=== PATIENT | male | born 1975 | race African-American/Black ===

== ENCOUNTER 2019-07-23 11:29 | Emergency (ER) | payer MEDICAID ==
[~2019-07-23] VITALS: Ht 172.7 cm; Wt 73.0 kg
[2019-07-23] MEDS ORDERED: MORPHINE SULFATE 2 MG/ML CPJ (NOT FOR IM USE) IV ONE ×2 (12:00→14:15)
[2019-07-23 12:29] LABS: BASOPHILS % 0.9 % (0.0-2.0); EOSINOPHILS % 0.2 % (0.0-5.0); HEMATOCRIT. 41.5 % (42.0-52.0); HEMOGLOBIN. 13.5 g/dL (14.0-18.0); LYMPHOCYTES % 28.1 % (20.0-50.0); MEAN CORPUSCULAR HEMOGLOBIN 28.9 pg (28.0-32.0); MEAN CORPUSCULAR VOLUME 88.6 fL (80.0-94.0); MONOCYTES % 7.4 % (2.0-8.0); NEUTROPHILS % 63.4 % (40.0-76.0); PLATELET 300 x1000/uL (130-400); RED BLOOD CELL COUNT 4.68 mill/uL (4.7-6.1)
[2019-07-23 12:33] LABS: CHLORIDE 107 mEq/L (98-107)
[2019-07-23 12:36] LABS: PARTIAL THROMBOPLASTIN TIME 28.5 sec (23.4-31.0); PROTHROMBIN TIME 10.7 sec (9.6-11.0)
[2019-07-23 14:59] LABS: CHLORIDE 108 mEq/L (98-107)
[2019-07-23] MEDS ORDERED: MORPHINE SULFATE 4 MG/ML CPJ (NOT FOR IM USE) IV STA (20:40)
[2019-07-23] MEDS ORDERED: ONDANSETRON HCL 4MG/2ML INJ IV STA (20:40)
[2019-07-24] MEDS ORDERED: ONDANSETRON HCL 4MG/2ML INJ IV ONE (04:15)
[2019-07-24] MEDS ORDERED: MORPHINE SULFATE 4 MG/ML CPJ (NOT FOR IM USE) IV ONE ×2 (04:15→07:15)
[2019-07-24 12:52] VITALS: BP 129/67
== END 2019-07-24 12:53 | disposition short-term general hospital (02) ==
LOC: ER 11:29
DX: S72.91XA Unspecified fracture of right femur, initial encounter for closed fracture (principal); M97.11XA Periprosthetic fracture around internal prosthetic right knee joint, initial encounter; R00.1 Bradycardia, unspecified; Z98.890 Other specified postprocedural states; W05.0XXA Fall from non-moving wheelchair, initial encounter; Y93.89 Activity, other specified; Y92.89 Other specified places as the place of occurrence of the external cause; Y99.8 Other external cause status
CPT/HCPCS: 36415; 72170; 73552; 73560; 80048; 80053; 82962; 85025; 85610; 85730; 93005; 96374; 96375; 96376; 99285; J2270; J2405; 73502; U0003-CS

== ENCOUNTER 2024-02-05 00:39 | Inpatient (IN) | payer MEDICAID ==
[~2024-02-05] VITALS: Ht 149.9 cm; Wt 45.0 kg
[2024-02-05 01:38] LABS: BASOPHILS % 1.2 % (0.0-2.0); HEMATOCRIT. 39.9 % (42.0-52.0); LYMPHOCYTES % 21.2 % (20.0-50.0); MEAN CORPUSCULAR HEMOGLOBIN 28.3 pg (28.0-32.0); MEAN CORPUSCULAR HGB CONC 32.6 g/dL (31.0-37.0); MEAN CORPUSCULAR VOLUME 86.7 fL (80.0-94.0); MEAN PLATELET VOLUME 7.2 fl (7.4-10.4); MONOCYTES % 2.8 % (2.0-8.0); NEUTROPHILS % 74.8 % (40.0-76.0); PLATELET 281 x1000/uL (130-400); RED CELL DISTRIBUTION WIDTH 15.8 % (11.6-14.6); WHITE BLOOD COUNT 10.6 x1000/uL (4.5-11.0)
[2024-02-05 01:43] LABS: CHLORIDE 106 mEq/L (98-107); POTASSIUM 4.1 mEq/L (3.5-5.1); SODIUM 137 mEq/L (136-145)
[2024-02-05 01:44] LABS: CALCIUM 10.5 mg/dL (8.7-10.4); CARBON DIOXIDE 20 mEq/L (21-32)
[2024-02-05 01:49] LABS: CREATININE 0.8 mg/dL (0.6-1.3); GLUCOSE 131 mg/dL (70-105); UREA NITROGEN BLOOD 9 mg/dL (9-23)
[2024-02-05 01:56] LABS: TROPONIN I HIGH SENSITIVITY 2907 ng/L (3.0-53)
[2024-02-05] MEDS ORDERED: HEPARIN 25,000 UNITS PREMIX 250 ML IV STA (02:02)
[2024-02-05] MEDS ORDERED: HEPARIN 5000 UNITS/ML VIAL IV ONE (02:15)
[2024-02-05] MEDS ORDERED: HEPARIN 60 UNITS/KG BOLUS IV SCH (02:15)
[2024-02-05] MEDS ORDERED: HEPARIN BOLUS PRN aPTT 30-44 IV ×2 (02:15→02:33)
[2024-02-05] MEDS ORDERED: HEPARIN BOLUS PRN aPTT <30 IV ×2 (02:15→02:33)
[2024-02-05] MEDS: MORPHINE SULFATE 4 MG/ML INJ (FOR IV/IM USE) IV STA (02:37)
[2024-02-05] MEDS: HEPARIN 60 UNITS/KG BOLUS IV NR (02:37)
[2024-02-05] MEDS: ONDANSETRON HCL 4MG/2ML INJ IV STA (02:38)
[2024-02-05] MEDS: ASPIRIN 81MG TABLET PO ONE (02:38)
[2024-02-05] MEDS: HEPARIN 25,000 UNITS PREMIX 250 ML IV SCH (03:12)
[2024-02-05 04:35] LABS: TROPONIN I HIGH SENSITIVITY 5355 ng/L (3.0-53)
[2024-02-05 06:42] LABS: TROPONIN I HIGH SENSITIVITY 7678 ng/L (3.0-53)
[2024-02-05 08:15] LABS: TROPONIN I HIGH SENSITIVITY 8802 ng/L (3.0-53)
[2024-02-05] MEDS: ASPIRIN 81MG TABLET PO SCH (09:23)
[2024-02-05] MEDS ORDERED: ONDANSETRON HCL 4MG/2ML INJ IV PRN (09:30)
[2024-02-05] MEDS ORDERED: LIDOCAINE HCL 1% 20ML VIAL ONE (09:46)
[2024-02-05] MEDS ORDERED: VERAPAMIL HCL 2.5 MG/1 ML 2ML VIAL IV ONE (09:46)
[2024-02-05] MEDS ORDERED: IODIXANOL 320MG/ML 100 ML BOTTLE IV ONE ×2 (09:47→10:53)
[2024-02-05] MEDS ORDERED: HEPARIN 1000 UNITS/ML 10ML ONE (09:47)
[2024-02-05] MEDS ORDERED: DIPHENHYDRAMINE 50MG/ML VIAL ONE (10:11)
[2024-02-05] MEDS ORDERED: MIDAZOLAM HCL 2 MG/2 ML VIAL ONE (10:12)
[2024-02-05] MEDS ORDERED: FENTANYL CITRATE/PF 50MCG/ML 2ML VIAL ONE (10:12)
[2024-02-05] MEDS ORDERED: LABETALOL 5MG/ML 20ML VIAL IV ONE (10:44)
[2024-02-05] MEDS ORDERED: CLOPIDOGREL 75MG TABLET ONE (11:00)
[2024-02-05] MEDS ORDERED: NALOXONE HCL 0.4MG/ML VIAL IV PRN (11:45)
[2024-02-05] MEDS ORDERED: ATROPINE SULFATE 1MG/10ML SYR IV PRN (11:45)
[2024-02-05] MEDS ORDERED: LABETALOL 5MG/ML 4ML INJ IV PRN (12:00)
[2024-02-05] MEDS: SODIUM CHLORIDE 0.45% 500 ML IV ONE (12:00)
[2024-02-05] MEDS: HYDRALAZINE 20MG/ML VIAL IV PRN (12:12)
[2024-02-05] MEDS: MORPHINE SULFATE 2 MG/ML INJ (NOT FOR IM USE) IV PRN (13:41)
[2024-02-05 15:34] VITALS: BP 149/75; PULSE 80; RESP 15; TEMP 36.89184; O2SAT 96
[2024-02-05 16:09] VITALS: BP 149/75; PULSE 80; RESP 15; TEMP 36.9184
[2024-02-05 19:46] VITALS: BP 150/99; PULSE 82; RESP 12; TEMP 37.00296; O2SAT 99
[2024-02-05] MEDS: ATORVASTATIN CALCIUM 20MG TABLET PO SCH (20:27)
[2024-02-06] VITALS: BP 148/103; PULSE 98; RESP 15; TEMP 36.83628; O2SAT 94
[2024-02-06 00:27] LABS: *AMPHETAMINES SCREEN URINE NEGATIVE (NEGATIVE)
[2024-02-06 00:28] LABS: *BARBITURATES SCREEN URINE NEGATIVE (NEGATIVE); *BENZODIAZEPINES SCREEN URINE PRESUMPTIVE POSITIVE (NEGATIVE); *COCAINE SCREEN URINE NEGATIVE (NEGATIVE); CANNABINOID URINE SCREEN PRESUMPTIVE POSITIVE (NEGATIVE); ECSTASY MDMA SCREEN URINE NEGATIVE (NEGATIVE); METHADONE URINE SCREEN NEGATIVE (NEGATIVE); OPIATES URINE SCREEN PRESUMPTIVE POSITIVE (NEGATIVE); PHENCYCLIDINE URINE SCREEN NEGATIVE (NEGATIVE)
[2024-02-06 04:00] VITALS: BP 115/82; PULSE 91; RESP 22; TEMP 36.89184; O2SAT 97
[2024-02-06 06:23] LABS: BASOPHILS % 0.3 % (0.0-2.0); EOSINOPHILS % 0.8 % (0.0-5.0); HEMATOCRIT. 38.7 % (42.0-52.0); HEMOGLOBIN. 12.3 g/dL (14.0-18.0); LYMPHOCYTES % 38.3 % (20.0-50.0); MEAN CORPUSCULAR HEMOGLOBIN 27.8 pg (28.0-32.0); MEAN CORPUSCULAR HGB CONC 31.7 g/dL (31.0-37.0); MEAN CORPUSCULAR VOLUME 87.7 fL (80.0-94.0); MEAN PLATELET VOLUME 7.2 fl (7.4-10.4); MONOCYTES % 6.5 % (2.0-8.0); NEUTROPHILS % 54.1 % (40.0-76.0); PLATELET 295 x1000/uL (130-400); RED BLOOD CELL COUNT 4.41 mill/uL (4.7-6.1); RED CELL DISTRIBUTION WIDTH 15.6 % (11.6-14.6); WHITE BLOOD COUNT 15.7 x1000/uL (4.5-11.0)
[2024-02-06 06:25] LABS: CHLORIDE 108 mEq/L (98-107); POTASSIUM 4.1 mEq/L (3.5-5.1); SODIUM 138 mEq/L (136-145)
[2024-02-06 06:26] LABS: CALCIUM 9.7 mg/dL (8.7-10.4); CARBON DIOXIDE 25 mEq/L (21-32)
[2024-02-06 06:31] LABS: CREATININE 0.8 mg/dL (0.6-1.3); GLUCOSE 82 mg/dL (70-105); UREA NITROGEN BLOOD 16 mg/dL (9-23)
[2024-02-06 08:00] VITALS: BP 141/101; PULSE 121; RESP 18; TEMP 36.89184; O2SAT 98
[2024-02-06] MEDS: CLOPIDOGREL 75MG TABLET PO SCH (08:43)
[2024-02-06] MEDS: PANTOPRAZOLE SODIUM 40 MG/VIAL IV SCH (08:43)
[2024-02-06 12:00] VITALS: BP 143/93; PULSE 111; RESP 19; TEMP 37.11408; O2SAT 99
[2024-02-06] MEDS: CARVEDILOL 6.25 MG TABLET PO SCH (12:29)
[2024-02-06 16:00] VITALS: BP_SYST 153; BP_SYST 185; BP_DIAS 101; BP_DIAS 106; PULSE 92; RESP 18; TEMP 36.89184; O2SAT 97
[2024-02-06 19:41] VITALS: BP 127/102; PULSE 115; RESP 17; TEMP 37.00296; O2SAT 98
[2024-02-06] MEDS: ACETAMINOPHEN 325MG TABLET PO PRN (20:42)
[2024-02-07 00:40] VITALS: BP 143/107; PULSE 91; RESP 18; TEMP 36.89184; O2SAT 100
[2024-02-07 04:25] VITALS: BP 123/87; PULSE 105; RESP 20; TEMP 36.89184; O2SAT 100
[2024-02-07 08:00] VITALS: BP 132/85; PULSE 99; RESP 14; TEMP 36.83628; O2SAT 98
[2024-02-07 12:00] VITALS: BP 142/87; PULSE 89; RESP 14; TEMP 36.72516; O2SAT 97
[2024-02-07] MEDS ORDERED: COR6 PO (12:05)
[2024-02-07] MEDS ORDERED: ATOR20TA PO (12:05)
[2024-02-07] MEDS ORDERED: CLOP-31 (12:05)
[2024-02-07] MEDS ORDERED: ASPI-1160 PO ×2 (12:05)
[2024-02-07 12:26] LABS: BASOPHILS % 0.6 % (0.0-2.0); EOSINOPHILS % 0.6 % (0.0-5.0); HEMATOCRIT. 36.7 % (42.0-52.0); HEMOGLOBIN. 11.7 g/dL (14.0-18.0); LYMPHOCYTES % 38.9 % (20.0-50.0); MEAN CORPUSCULAR HGB CONC 31.8 g/dL (31.0-37.0); MEAN PLATELET VOLUME 7.2 fl (7.4-10.4); NEUTROPHILS % 52.9 % (40.0-76.0); PLATELET 288 x1000/uL (130-400); RED BLOOD CELL COUNT 4.17 mill/uL (4.7-6.1); RED CELL DISTRIBUTION WIDTH 15.5 % (11.6-14.6); WHITE BLOOD COUNT 10.9 x1000/uL (4.5-11.0)
[2024-02-07 12:43] LABS: CALCIUM 10.3 mg/dL (8.7-10.4); CARBON DIOXIDE 25 mEq/L (21-32); CHLORIDE 107 mEq/L (98-107); POTASSIUM 4.3 mEq/L (3.5-5.1); SODIUM 138 mEq/L (136-145)
[2024-02-07 12:48] LABS: CREATININE 0.9 mg/dL (0.6-1.3)
[2024-02-07 12:49] LABS: GLUCOSE 108 mg/dL (70-105); UREA NITROGEN BLOOD 15 mg/dL (9-23)
[2024-02-07 14:47] VITALS: BP 142/87; PULSE 89; TEMP 98.1; O2SAT 97
[2024-02-07 16:00] VITALS: PULSE 95; RESP 19; TEMP 36.6696; TEMP 36.66960; O2SAT 97
== END 2024-02-07 19:25 | disposition home or self-care (01) | DRG 174 ==
LOC: ER 00:39 → 3WST 02:29 → EDBEDREQSVC 02:52 → EDBEDREQ 02:52 → EDBEDREQTM 02:52
PROVIDERS: ADMIT Internal Medicine; ATTEND Internal Medicine
PROC: 027034Z Dilation of Coronary Artery, One Artery with Drug-eluting Intraluminal Device, Percutaneous Approach (ICD-10-PCS; principal; 2024-02-05)
PROC: 4A023N7 Measurement of Cardiac Sampling and Pressure, Left Heart, Percutaneous Approach (ICD-10-PCS; 2024-02-05)
PROC: B211YZZ Fluoroscopy of Multiple Coronary Arteries using Other Contrast (ICD-10-PCS; 2024-02-05)
DX: I21.4 Non-ST elevation (NSTEMI) myocardial infarction (principal); Q78.0 Osteogenesis imperfecta; D72.829 Elevated white blood cell count, unspecified; F17.210 Nicotine dependence, cigarettes, uncomplicated; Z20.822 Contact with and (suspected) exposure to COVID-19; I10 Essential (primary) hypertension; I25.2 Old myocardial infarction; Z87.81 Personal history of (healed) traumatic fracture; Z99.3 Dependence on wheelchair; I25.10 Atherosclerotic heart disease of native coronary artery without angina pectoris
CPT/HCPCS: 36415; 71045; 80048; 80305; 83880; 84145; 84484; 85025; 85347; 85379; 86850; 86900; 87426; 92928; 93005; 93306; 93458; 93970; 99291; C1725; C1769; C1874; C1887; C1893; J0360; J1200; J1644; J2250; J2270; J2405; J2470; J3010; J3490; Q9967